=== PATIENT | male | born 1965 | race Caucasian/White ===

== ENCOUNTER 2021-01-12 12:13 | Inpatient (IN) | payer OTHER ==
[2021-01-12 14:40] VITALS: BMI 21.0
[2021-01-12] MEDS ORDERED: BISMUTH SUBSALICYLATE 262 MG/15 ML BTL PO PRN (14:42)
[2021-01-12] MEDS ORDERED: ONDANSETRON *ODT* 4 MG TABLET SL PRN (14:42)
[2021-01-12] MEDS ORDERED: IBUPROFEN 400 MG TABLET (FP) PO PRN (14:42)
[2021-01-12] MEDS ORDERED: NICOTINE POLACRILEX 2 MG GUM BUC PRN (14:42)
[2021-01-12] MEDS ORDERED: MAG HYDROX/AL HYDROX/SIMETH 30 ML UNIT-DOSE CUP PO PRN (14:42)
[2021-01-12] MEDS ORDERED: MAGNESIUM CITRATE 300 ML BOTTLE PO PRN (14:42)
[2021-01-12] MEDS ORDERED: MENTHOL/PHENOL 1 EACH UD MM PRN (14:42)
[2021-01-12] MEDS ORDERED: diazePAM 5 MG TABLET PO PRN (14:42)
[2021-01-12] MEDS ORDERED: MAGNESIUM HYDROX 2400MG/30ML ORAL SUSPENSION 30 ML CUP PO PRN (14:42)
[2021-01-12] MEDS ORDERED: ACETAMINOPHEN 325 MG TABLET (FP) PO PRN ×2 (14:42)
[2021-01-12] MEDS ORDERED: METHOCARBAMOL 500 MG TABLET PO PRN (14:42)
[2021-01-12] MEDS: NICOTINE 7 MG/24 HOURS TOPICAL PATCH TD SCH (15:59)
[2021-01-12] MEDS: PRENATAL VITAMINS W/ FOLIC ACID TABLET (FP) PO SCH (15:59)
[2021-01-12 17:16] LABS: HEMATOCRIT 41.6 % (35.4-49); HEMOGLOBIN 14.2 GM/dL (11.7-16.9); MCH 33.1 pg (25.7-33.7); MCHC 34.2 g/dl (32.0-35.9); MEAN CELL VOLUME 96.8 fl (80-96); MEAN PLT VOLUME 7.7 fl (7.5-11.1); PLATELET COUNT 317 K/MM3 (134-434); RDW 13.4 % (11.9-15.9); WHITE BLOOD COUNT 5.4 K/mm3 (4.0-10.0)
[2021-01-12 17:22] LABS: ALBUMIN 4.2 g/dl (3.4-5.0); BLOOD UREA NITROGEN 14.6 mg/dL (7-18)
[2021-01-12 17:25] LABS: CREATININE 0.9 mg/dL (0.55-1.3)
[2021-01-12 17:26] LABS: BILIRUBIN,TOTAL 0.6 mg/dL (0.2-1); TOT PROT 7.1 g/dl (6.4-8.2)
[2021-01-12] MEDS: hydrOXYzine PAMOATE 25 MG CAPSULE (FP) PO SCH ×2 (18:11→22:23)
[2021-01-12] MEDS: diazePAM 5 MG TABLET PO SCH ×2 (18:11→22:23)
[2021-01-12] MEDS ORDERED: MELATONIN 5 MG TABLETS PO SCH (22:00)
[2021-01-12] MEDS ORDERED: THIAMINE HCL 100 MG TABLET (FP) PO SCH (22:00)
[2021-01-13] MEDS: diazePAM 5 MG TABLET PO SCH ×3 (05:43→18:12)
[2021-01-13] MEDS: hydrOXYzine PAMOATE 25 MG CAPSULE (FP) PO SCH ×4 (05:44→18:12)
[2021-01-13] MEDS ORDERED: METHADONE HCL 5 MG TABLET ONE (09:34)
[2021-01-13] MEDS ORDERED: METHADONE HCL 10 MG TABLET ONE (09:34)
[2021-01-13] MEDS ORDERED: METHADONE PO SCH (10:00)
[2021-01-13] MEDS ORDERED: METHADONE HCL 10 MG TABLET PO SCH (10:00)
[2021-01-13] MEDS: PRENATAL VITAMINS W/ FOLIC ACID TABLET (FP) PO SCH (10:25)
[2021-01-13] MEDS: NICOTINE 7 MG/24 HOURS TOPICAL PATCH TD SCH (10:25)
[2021-01-13 17:15] VITALS: BP 114/78; PULSE 73; TEMP 98.4
[2021-01-13] MEDS ORDERED: SUVOREXANT 10 MG TABLET PO PRN (22:00)
[2021-01-14] MEDS ORDERED: diazePAM 5 MG TABLET PO SCH (06:00)
[2021-01-15] MEDS ORDERED: diazePAM 5 MG TABLET PO SCH (06:00)
[2021-01-16] MEDS ORDERED: diazePAM 5 MG TABLET PO ONE (06:00)
== END 2021-01-13 20:30 | disposition left against medical advice (07) | DRG 770 ==
LOC: YASAS 12:13 → Y6N 15:14
PROVIDERS: ADMIT Allergy & Immunology; ATTEND Allergy & Immunology
PROC: HZ2ZZZZ Detoxification Services for Substance Abuse Treatment (ICD-10-PCS; principal; 2021-01-12)
DX: F13.230 Sedative, hypnotic or anxiolytic dependence with withdrawal, uncomplicated (principal); F11.20 Opioid dependence, uncomplicated; F17.210 Nicotine dependence, cigarettes, uncomplicated; F19.280 Other psychoactive substance dependence with psychoactive substance-induced anxiety disorder; F19.282 Other psychoactive substance dependence with psychoactive substance-induced sleep disorder; D17.1 Benign lipomatous neoplasm of skin and subcutaneous tissue of trunk; Z88.0 Allergy status to penicillin
CPT/HCPCS: 36415; 80053; 85027; 86780; 93005; 93010; C9803; U0003; U0005